=== PATIENT | female | born 1995 | race African-American/Black ===

== ENCOUNTER 2020-03-04 16:43 | Inpatient (IN) ==
[2020-03-04] MEDS ORDERED: ceFAZolin 2,000 MG in PREMIX 1 EACH IV ONE (17:46)
[2020-03-04] MEDS ORDERED: FAMOTIDINE 20 MG/2 ML VIAL IV ONE (17:46)
[2020-03-04] MEDS ORDERED: CITRIC ACID/SODIUM CITRATE 30 ML UDCUP PO ONE (17:46)
[2020-03-04] MEDS ORDERED: OXYTOCIN/LR 30 UNIT/1,000 ML BAG IV ONE (17:54)
[2020-03-04] MEDS ORDERED: OXYTOCIN/LR 20 UNIT/1,000 ML BAG IV ONE ×2 (17:55→20:38)
[2020-03-04] MEDS ORDERED: OXYTOCIN 10 UNIT/ML VIAL IM ONE (17:55)
[2020-03-04] MEDS ORDERED: LACTATED RINGERS 1,000 ML IV SCH ×2 (18:00→21:00)
[2020-03-04 18:39] LABS: Albumin 2.5 G/DL (3.4-5.0); Bilirubin,Total 0.5 MG/DL (0.2-1.0); Calcium 8.1 MG/DL (8.5-10.1); Osmolality,Calculated 273.5 MOS/KG (273-304)
[2020-03-04 18:42] LABS: Basophils % 0.3 % (0.0-0.8); Eosinophils # 0.1 10*3/uL (0.0-0.87); Eosinophils % 0.9 % (0.00-10.9); Hematocrit 27.6 VOL% (35.7-47.0); Hemoglobin 7.9 GM/DL (12.0-16.0); Immature Granulocytes % 0.6 %; Immature Granulocytes Absolute 0.06 #; Lymphocytes # 1.8 10*3/uL (1.4-4.0); Lymphocytes % 18.7 % (21.3-54.2); Mean Corpuscular HGB Conc 28.6 GM/DL (32-36); Mean Corpuscular Volume 80.7 FL (87-102); Mean Platelet Volume 10.2 FL (9.6-12.0); Monocytes % 7.9 % (1.7-12.7); Neutrophils % 71.6 % (38.7-73.9); Platelet Count 291 T/CUMM (130-400); Red Blood Count 3.42 MC/CUMM (3.8-5.5); Red Cell Distribution Width 16.9 % (9.3-17.3); White Blood Count 9.4 T/CUMM (4-12)
[2020-03-04 18:51] LABS: Hypochromasia 1+; Microcytosis Slight
[2020-03-04] MEDS ORDERED: ROPIVACAINE 0.5% 30 ML VIAL ONE (18:57)
[2020-03-04] MEDS ORDERED: DEXAMETHASONE 4 MG/1 ML VIAL ONE (18:58)
[2020-03-04] MEDS ORDERED: ONDANSETRON 4 MG/2 ML VIAL ONE (19:19)
[2020-03-04] MEDS ORDERED: BUPIVACAINE SPINAL 0.75% 2 ML AMP SPINAL ONE (19:19)
[2020-03-04] MEDS ORDERED: PHENYLEPHRINE 1 MG/10 ML SYRINGE IV ONE (19:19)
[2020-03-04] MEDS ORDERED: MORPHINE 10 MG/10 ML VIAL ONE (19:20)
[2020-03-04] MEDS ORDERED: miSOPROStoL 200 MCG TABLET ONE (19:45)
[2020-03-04] MEDS ORDERED: TRANEXAMIC ACID 1,000 MG/10 ML VIAL ONE (19:45)
[2020-03-04] MEDS ORDERED: CARBOPROST TROMETHAMINE 250 MCG/ML AMP IM ONE (19:46)
[2020-03-04] MEDS ORDERED: METHYLERGONOVINE 0.2 MG/1 ML AMP ONE (19:46)
[2020-03-04 20:18] LABS: Cord Arterial Blood HCO3 19.1 MMOL/L
[2020-03-04 20:22] LABS: Cord Venous Blood HCO3 21.7 MMOL/L; Cord Venous Blood PCO2 39.4 MMHG; Cord Venous Blood PO2 32.2
[2020-03-04] MEDS ORDERED: ONDANSETRON 4 MG/2 ML VIAL IV PRN (20:38)
[2020-03-04] MEDS ORDERED: RHO(D) IMMUNE GLOBULIN 300 MCG SYRINGE IM ONE (20:38)
[2020-03-04] MEDS ORDERED: ACETAMINOPHEN 325 MG TABLET PO PRN (20:38)
[2020-03-04] MEDS ORDERED: MAGNESIUM HYDROXIDE SUSP 30 ML UDCUP PO PRN (20:38)
[2020-03-04] MEDS ORDERED: MIDAZOLAM 2 MG/2 ML VIAL ONE (20:42)
[2020-03-04 20:46] LABS: Apearance,Urine CLEAR (Clear); Bilirubin,Urine Negative (Negative); Blood, Urine Small mg/dL (Negative); Glucose,Urine (UA) Negative (Negative); Ketones,Urine Negative (Negative); Mucus,Urine Occasional /LPF (Occasional); Nitrite,Urine Negative (Negative); Protein,Urine Negative; RBC,Urine 17 /HPF (0-4); Squamous Epithelial Cell,Urine Occasional /HPF (0-10); Urine Color Yellow (Yellow); Urine Specific Gravity 1.017 (1.001-1.035); WBC,Urine 1 /HPF (0-6)
[2020-03-04] MEDS: diphenhydrAMINE 50 MG/1 ML VIAL IV PRN (23:08)
[2020-03-04] MEDS: DOCUSATE SODIUM 100 MG CAPSULE PO SCH (23:11)
[2020-03-04] MEDS: IBUPROFEN 800 MG TABLET PO PRN (23:44)
[2020-03-05] MEDS ORDERED: ceFAZolin 1,000 MG in SYRINGE 1 EACH IV SCH (02:30)
[2020-03-05] MEDS: diphenhydrAMINE 50 MG/1 ML VIAL IV PRN (04:21)
[2020-03-05] MEDS: SIMETHICONE CHEW 80 MG TABLET PO PRN (08:54)
[2020-03-05] MEDS: DOCUSATE SODIUM 100 MG CAPSULE PO SCH ×2 (08:54→21:17)
[2020-03-05] MEDS: MULTIVITAMIN (PRENATAL) TABLET PO SCH (08:54)
[2020-03-05 09:05] LABS: Basophils % 0.1 % (0.0-0.8); Hematocrit 32.8 VOL% (35.7-47.0); Hemoglobin 9.4 GM/DL (12.0-16.0); Immature Granulocytes % 0.6 %; Lymphocytes % 5.8 % (21.3-54.2); Mean Corpuscular HGB Conc 28.7 GM/DL (32-36); Mean Corpuscular Volume 79.8 FL (87-102); Mean Platelet Volume 10.3 FL (9.6-12.0); Monocytes % 2.9 % (1.7-12.7); Neutrophils % 90.6 % (38.7-73.9); Platelet Count 337 T/CUMM (130-400); Red Blood Count 4.11 MC/CUMM (3.8-5.5); Red Cell Distribution Width 16.7 % (9.3-17.3); White Blood Count 16.7 T/CUMM (4-12)
[2020-03-05 09:23] LABS: Hypochromasia 1+; Lymphocytes 3 % (20-55); Microcytosis Slight; Ovalocytes Slight; Platelet Estimate Adequate; Segmented Neutrophils 93 % (50-85); Total Cells Counted 100
[2020-03-05] MEDS ORDERED: hydrOXYzine HCL 25 MG/1 ML VIAL IM PRN (11:01)
[2020-03-05] MEDS ORDERED: HydrOXYzine PAMOATE 25 MG CAPSULE PO PRN (11:01)
[2020-03-05] MEDS ORDERED: diphenhydrAMINE CAP 25 MG CAPSULE PO PRN (15:10)
[2020-03-05] MEDS: IBUPROFEN 800 MG TABLET PO PRN (17:24)
[2020-03-06] MEDS: SIMETHICONE CHEW 80 MG TABLET PO PRN (09:16)
[2020-03-06] MEDS: MULTIVITAMIN (PRENATAL) TABLET PO SCH (09:16)
[2020-03-06] MEDS: DOCUSATE SODIUM 100 MG CAPSULE PO SCH (09:16)
[2020-03-06] MEDS: IBUPROFEN 800 MG TABLET PO PRN (09:17)
[2020-03-06 10:11] VITALS: BP 113/65
== END 2020-03-06 14:10 | disposition home or self-care (01) | DRG 540 ==
LOC: N.LDOUT 16:43 → N.OB 16:50 → N.LD 21:17 → N.OB 03-05 10:52
PROVIDERS: ADMIT Obstetrics & Gynecology; ATTEND Obstetrics & Gynecology
PROC: LDCSECT (ICD-10-PCS; 2020-03-04 19:30)

== ENCOUNTER 2022-08-16 10:06 | Inpatient (IN) ==
[2022-08-16] MEDS ORDERED: TRANEXAMIC ACID 1,000 MG in SODIUM CHLORIDE 0.9% 100 ML IV PRN (10:14)
[2022-08-16] MEDS ORDERED: CITRIC ACID/SODIUM CITRATE 30 ML UDCUP PO ONE (10:14)
[2022-08-16] MEDS ORDERED: miSOPROStoL 200 MCG TABLET RECTAL PRN (10:14)
[2022-08-16] MEDS ORDERED: METHYLERGONOVINE 0.2 MG/1 ML AMP IM PRN (10:14)
[2022-08-16] MEDS ORDERED: FAMOTIDINE 20 MG/2 ML VIAL IV ONE (10:14)
[2022-08-16] MEDS ORDERED: ceFAZolin 2,000 MG/50 ML DUPLEX IV ONE (10:14)
[2022-08-16] MEDS ORDERED: CARBOPROST TROMETHAMINE 250 MCG/ML AMP IM PRN (10:14)
[2022-08-16] MEDS ORDERED: OXYTOCIN/LR 20 UNIT/1,000 ML BAG IV ONE ×2 (10:14→17:17)
[2022-08-16] MEDS ORDERED: LACTATED RINGERS 1,000 ML IV SCH (10:30)
[2022-08-16 10:44] LABS: Basophils % 0.4 % (0.0-0.8); Eosinophils # 0.1 10*3/uL (0.0-0.87); Eosinophils % 0.8 % (0.00-10.9); Hematocrit 32.8 VOL% (35.7-47.0); Hemoglobin 10.3 GM/DL (12.0-16.0); Immature Granulocytes % 0.9 %; Immature Granulocytes Absolute 0.07 #; Lymphocytes # 1.9 10*3/uL (1.4-4.0); Mean Corpuscular HGB Conc 31.4 GM/DL (32-36); Mean Corpuscular Volume 83.5 FL (87-102); Monocytes # 0.6 10*3/uL (0.11-0.8); Monocytes % 7.9 % (1.7-12.7); Platelet Count 297 T/CUMM (130-400); Red Blood Count 3.93 MC/CUMM (3.8-5.5); Red Cell Distribution Width 14.7 % (9.3-17.3); White Blood Count 7.6 T/CUMM (4-12)
[2022-08-16] MEDS ORDERED: OXYTOCIN 10 UNIT/ML VIAL IM ONE (10:53)
[2022-08-16] MEDS ORDERED: OXYTOCIN/LR 30 UNIT/1,000 ML BAG IV ONE (10:53)
[2022-08-16] MEDS ORDERED: buprenorphine HCL 0.3 MG/ML VIAL ONE (14:59)
[2022-08-16] MEDS ORDERED: ONDANSETRON 4 MG/2 ML VIAL ONE (14:59)
[2022-08-16] MEDS ORDERED: LACTATED RINGERS 1,000 ML IV ONE (15:52)
[2022-08-16] MEDS ORDERED: KETOROLAC 30 MG/1 ML VIAL ONE (16:06)
[2022-08-16 16:20] LABS: Cord Arterial Blood HCO3 21.3 MMOL/L
[2022-08-16] MEDS ORDERED: PHENYLEPHRINE 1 MG/10 ML SYRINGE IV ONE (16:21)
[2022-08-16 16:23] LABS: Bilirubin,Urine Negative (Negative); Blood, Urine Negative (Negative); Glucose,Urine (UA) Negative (Negative); Ketones,Urine 15 mg/dL (Negative); Nitrite,Urine Negative (Negative); Protein,Urine Negative (Negative); Urine Appearance Clear (Clear); Urine Color Yellow (Yellow); Urine Urobilinogen 0.2 eU/dL (<2.0)
[2022-08-16 16:23] LABS: Cord Venous Blood HCO3 22.1 MMOL/L; Cord Venous Blood PO2 34.4
[2022-08-16] MEDS ORDERED: MIDAZOLAM 2 MG/2 ML VIAL ONE (16:24)
[2022-08-16 16:31] LABS: Bacteria,Urine Occasional /HPF (Few); Mucus,Urine Occasional /LPF (Occasional); RBC,Urine <1 /HPF (0-4); Squamous Epithelial Cell,Urine Occasional /HPF (0-10)
[2022-08-16] MEDS ORDERED: ACETAMINOPHEN 325 MG TABLET PO PRN (17:17)
[2022-08-16] MEDS ORDERED: RHO(D) IMMUNE GLOBULIN 300 MCG SYRINGE IM ONE (17:17)
[2022-08-16] MEDS ORDERED: MAGNESIUM HYDROXIDE SUSP 30 ML UDCUP PO PRN (17:17)
[2022-08-16] MEDS ORDERED: SIMETHICONE CHEW 80 MG TABLET PO PRN (17:17)
[2022-08-16] MEDS ORDERED: ONDANSETRON 4 MG/2 ML VIAL IV PRN (17:17)
[2022-08-16] MEDS ORDERED: diphenhydrAMINE 50 MG/1 ML VIAL IV ONE (18:06)
[2022-08-16] MEDS ORDERED: ACETAMINOPHEN 500 MG TABLET PO SCH (20:00)
[2022-08-16 20:02] LABS: Hematocrit 32.5 VOL% (35.7-47.0)
[2022-08-16] MEDS: KETOROLAC 30 MG/1 ML VIAL IV SCH (22:41)
[2022-08-16] MEDS: ACETAMINOPHEN 500 MG TABLET PO SCH (22:42)
[2022-08-16] MEDS ORDERED: KETOROLAC 30 MG/1 ML VIAL IV SCH (23:00)
[2022-08-17] MEDS: LACTATED RINGERS 1,000 ML IV SCH ×2 (02:47→12:08)
[2022-08-17] MEDS: ACETAMINOPHEN 500 MG TABLET PO SCH ×3 (03:35→15:39)
[2022-08-17] MEDS: KETOROLAC 30 MG/1 ML VIAL IV SCH ×2 (03:36→09:11)
[2022-08-17 06:49] LABS: Basophils % 0.4 % (0.0-0.8); Eosinophils # 0.1 10*3/uL (0.0-0.87); Eosinophils % 0.9 % (0.00-10.9); Hematocrit 29.1 VOL% (35.7-47.0); Hemoglobin 9.3 GM/DL (12.0-16.0); Immature Granulocytes % 0.6 %; Immature Granulocytes Absolute 0.05 #; Lymphocytes # 1.4 10*3/uL (1.4-4.0); Lymphocytes % 16.2 % (21.3-54.2); Mean Corpuscular Volume 84.3 FL (87-102); Mean Platelet Volume 10.3 FL (9.6-12.0); Monocytes # 0.8 10*3/uL (0.11-0.8); Monocytes % 9.4 % (1.7-12.7); Neutrophils % 72.5 % (38.7-73.9); Platelet Count 263 T/CUMM (130-400); Red Blood Count 3.45 MC/CUMM (3.8-5.5); Red Cell Distribution Width 14.7 % (9.3-17.3); White Blood Count 8.5 T/CUMM (4-12)
[2022-08-17] MEDS ORDERED: diphenhydrAMINE CAP 50 MG CAPSULE PO PRN (08:33)
[2022-08-17] MEDS: valACYclovir 500 MG TABLET PO SCH (08:50)
[2022-08-17] MEDS: MULTIVITAMIN (PRENATAL) TABLET PO SCH (08:50)
[2022-08-17] MEDS: IBUPROFEN 800 MG TABLET PO PRN ×2 (08:50→21:15)
[2022-08-17] MEDS: DOCUSATE SODIUM 100 MG CAPSULE PO SCH ×3 (08:50→20:22)
[2022-08-18] MEDS: IBUPROFEN 800 MG TABLET PO PRN (05:03)
[2022-08-18 08:20] VITALS: BP 110/57
[2022-08-18] MEDS: MULTIVITAMIN (PRENATAL) TABLET PO SCH (09:24)
[2022-08-18] MEDS: valACYclovir 500 MG TABLET PO SCH (09:24)
[2022-08-18] MEDS: DOCUSATE SODIUM 100 MG CAPSULE PO SCH (09:24)
== END 2022-08-18 12:50 | disposition home or self-care (01) | DRG 539 ==
LOC: N.LD 10:06 → N.OB 22:21
PROVIDERS: ADMIT Obstetrics & Gynecology; ATTEND Obstetrics & Gynecology